=== PATIENT | female | born 1945 | race Caucasian/White ===

== ENCOUNTER 2016-09-17 08:25 | Outpatient (CLI) | payer MEDICARE, OTHER ==
[2016-09-17 09:12] LABS: eGFR (African) > 60; eGFR (Non-African) > 60
== END 2016-09-17 08:26 ==
LOC: RAD 08:25
PROVIDERS: ATTEND Internal Medicine
DX: I10 Essential (primary) hypertension (principal); E78.2 Mixed hyperlipidemia; E04.1 Nontoxic single thyroid nodule; E55.9 Vitamin D deficiency, unspecified
CPT/HCPCS: 36415; 77080; 80053; 80061; 82306; 84439; 84443

== ENCOUNTER 2018-02-16 09:25 | Outpatient (CLI) | payer MEDICARE, OTHER ==
[2018-02-16 10:08] LABS: BASOPHILS % 0.8 (0.0-1.5); EOSINOPHILS % 3.6 % (0.0-6.8); MEAN CORPUSCULAR HEMOGLOBIN 30.8 pg (28.0-34.0); MONOCYTES % 3.6 % (0.0-11.0); NEUTROPHILS # 3.3 # k/uL (1.4-7.7)
[2018-02-16 13:42] LABS: eGFR (African) > 60; eGFR (Non-African) > 60
== END 2018-02-16 09:26 ==
LOC: LAB 09:25
PROVIDERS: ATTEND Internal Medicine
DX: Z00.00 Encounter for general adult medical examination without abnormal findings (principal); Z85.850 Personal history of malignant neoplasm of thyroid
CPT/HCPCS: 36415; 80053; 84439; 84443; 84481; 85025

== ENCOUNTER 2019-02-09 09:26 | Outpatient (CLI) | payer MEDICARE, OTHER ==
[2019-02-09 10:36] LABS: HDL 51 mg/dL (>40); eGFR (Non-African) > 60
== END 2019-02-09 09:28 ==
LOC: LAB 09:26
PROVIDERS: ATTEND Internal Medicine
DX: I10 Essential (primary) hypertension (principal); E78.5 Hyperlipidemia, unspecified; E04.1 Nontoxic single thyroid nodule; Z78.9 Other specified health status
CPT/HCPCS: 36415; 80053; 80061; 84439; 84443